=== PATIENT | male | born 1935 | race African-American/Black ===

== ENCOUNTER 2018-12-29 13:01 | Inpatient (IN) | payer OTHER ==
[2018-12-29 13:32] LABS: #Basophils 0.1 thou/uL (0.0-0.2); #Eosinphils 0.1 thou/uL (0.0-0.7); #Lymphocytes 1.2 thou/uL (1.20-3.40); #Monocytes 0.9 thou/uL (0.11-0.59); #Neutrophils 4.5 thou/uL (1.40-6.50); %Basophils 1.1 % (0.0-1.0); %Eosinophils 0.8 % (0.0-10.0); %Lymphocytes 17.6 % (21.0-51.0); %Monocytes 13.8 % (0.0-10.0); %Neutrophils 66.7 % (42.0-75.0); Hemoglobin 11.6 g/dL (14.0-18.0); Mean Corpuscular Hemoglobin 29.3 pg (27.0-31.0); Mean Corpuscular Volume 88.7 fL (78.0-98.0); Mean Platelet Volume 9.6 fL (7.4-10.4); Platelet Count 207 thou/uL (130-400); RBC Distribution Width 14.1 % (11.5-14.5); Red Blood Cell (RBC) Count 3.95 mill/uL (4.70-6.10); White Blood Cell (WBC) Count 6.8 thou/uL (4.8-10.8)
--- NOTE | 2018-12-29 13:38 | RAD ---
PORTABLE CHEST 1 VIEW: Date: 12/29/18 Time: 1309 hours HISTORY: Altered mental status. FINDINGS: Comparison made with exam of 06/26/13. There are changes of median sternotomy. The heart size is normal. The aorta is tortuous. The lungs ar e expanded without lobar consolidation, pneumothoraces, or pleural effusions. There is evidence of ol d granulomatous disease. IMPRESSION: No acute process. POS: [facility]
[2018-12-29 14:05] LABS: ALT (SGPT) Less than 7 U/L (8-55); AST (SGOT) 12 U/L (5-34); Albumin 3.9 g/dL (3.4-4.8); Alkaline Phosphatase 93 U/L (40-110); Anion Gap 10 mmol/L (10-20); BUN (Urea Nitrogen) 13 mg/dL (8.4-25.7); Bilirubin, Total 0.7 mg/dL (0.2-1.2); CK (CPK) 123 U/L (30-200); Calc. Creatinine Clearance 0 mL/min (70-130); Calcium 9.4 mg/dL (7.8-10.44); Carbon Dioxide 27 mmol/L (23-31); Chloride 107 mmol/L (98-107); Estimated GFR-MDRD 58; Globulin 2.5 g/dL (2.4-3.5); Glucose 107 mg/dL (83-110); Potassium 3.6 mmol/L (3.5-5.1); Protein, Total 6.4 g/dL (5.8-8.1); Sodium 140 mmol/L (136-145)
--- NOTE | 2018-12-29 14:22 | CT ---
CT BRAIN WITHOUT CONTRAST: Date: 12/29/18 HISTORY: Altered mental status. FINDINGS: There are changes of cortical atrophy and chronic small vessel ischemic disease. The ventricular size is slightly more prominent compared to the degree of atrophy. The basilar cisterns are patent. The b any calvarium is intact. The visualized paranasal sinuses and mastoid air cells are well aerated. IMPRESSION: 1. No CT evidence of acute intracranial process. 2. Clinical correlation for normal pressure hydrocephalus is recommended. POS: [facility]
[2018-12-29 14:30] LABS: Bacteria/HPF None Seen HPF (None Seen); Bilirubin Negative (Negative); Blood, Urine Negative (Negative); Clarity Clear (Clear); Glucose, Urine (Dipstick) Normal (Negative); Leukocyte Negative Leu/uL (Negative); Nitrite Negative (Negative); Protein, Urine (Dipstick) 30 mg/dL (Neg-Trace); RBC/HPF 0-3 HPF (0-3); Squamous Epithelial 0-3 HPF (0-3); Urobilinogen 3 mg/dL (Less than 2)
[2018-12-29] MEDS ORDERED: Ondansetron ODT 4 MG TAB SL PRN (18:03)
[2018-12-29] MEDS ORDERED: Ondansetron PF 4 MG/2 ML Vial IVP PRN ×2 (18:03→20:39)
[2018-12-29] MEDS ORDERED: Acetaminophen 325 MG TAB PO PRN (18:03)
[2018-12-29] MEDS ORDERED: Sodium Chloride 0.9% 1,000 ML IV SCH ×2 (18:03→21:30)
[2018-12-29] MEDS ORDERED: HYDROcodone/Acetaminophen 5/325 mg Tablet PO PRN ×2 (18:03)
[2018-12-29 18:41] VITALS: BMI 20.9
[2018-12-29] MEDS ORDERED: Ondansetron ODT 4 MG TAB PO PRN (20:39)
[2018-12-29] MEDS ORDERED: Famotidine/PF 20 mg/2ml Vial SLOW IVP SCH (21:00)
--- NOTE | 2018-12-29 22:01 | HP ---
TIME OF ADMISSION: 1900 hours. REASON FOR ADMISSION: Confusion. HISTORY OF PRESENT ILLNESS: Mr. Reynolds is a pleasant 83-year-old gentleman with a known history of hypertension who presented to the emergency department with confusion, witnessed by the staff at [facility]. The patient states he was told he appeared to be confused and states he was being asked multiple questions including the date, day, year, etc. The patient is unsure what exactly alarmed the staff , but states he has felt very well in himself in recent days and feels like he is in his usual state of mind and health at this present time. The floor nurse reported that he appeared to be confused on arrival to the emergency department. His symptoms have fully resolved. Very limited information obtained through the ED note. In the emergency department, he underwent laboratory studies which showed white count of 6.8, hemoglobin 11.6, hematocrit 35.1. Sodium 140, potassium 3.6, anion gap 10, BUN 13, creatinine elevated at 1.42. No previous to compare to. GFR is 58, glucose 107, calcium 9.4, total bilirubin 0.7, AST 12, ALT less than 7, alkaline phosphatase 73. CK 123, troponin negative. Albumin 3.9. Urinalysis notable for 30 of protein, 3 urobilinogen, 4-6 white blood cells, 21- 50 hyaline casts. Otherwise unremarkable. A chest x-ray was done, which showed no acute process. He also underwent CT imaging of the brain, which demonstrated no CT evidence of acute intracranial process. There was mention of slightly more prominent ventricular size compared to the degree of atrophy. PAST MEDICAL HISTORY: 1. Hypertension. 2. BPH. 3. Coronary artery disease. PAST SURGICAL HISTORY: 1. Right leg surgery. 2. CABG. SOCIAL HISTORY: The patient lives in what sounds like assisted living at [facility]. He states he mobilizes with a walker and is fully independent with self-care. Reports being a former smoker. No alcohol consumption or drug use. ALLERGIES: SULFA. CURRENT MEDICATIONS: 1. Amlodipine. 2. Metoprolol succinate. PHYSICAL EXAMINATION: GENERAL: The patient appears well developed, well nourished, he is in no acute distress. He is resting comfortably in bed, eating his dinner. VITAL SIGNS: Temperature 98.3, pulse 71, respirations 16, O2 saturation 98% on room air, blood pressure 148/60. HEENT: Normocephalic and atraumatic. Pupils are equal, round, and reactive to light. Sclerae without icterus. Oropharynx is clear. NECK: Supple without lymphadenopathy. LUNGS: Clear to auscultation bilaterally without any wheezes, rales, or rhonchi. CARDIAC: Regular rate and rhythm without audible murmurs, rubs, or gallops. ABDOMEN: Soft, nontender, nondistended. Normoactive bowel sounds present. EXTREMITIES: No lower leg swelling or edema. NEUROLOGIC: Alert and oriented x3. SKIN: Without rash or jaundice. INVESTIGATIONS: As mentioned above in HPI. IMPRESSION AND PLAN: Mr. Reynolds is a pleasant 83-year-old gentleman who had an episode of transient confusion, who has been referred for management of the following. 1. Transient ischemic attack, rule out. The patient apparently witnessed to be confused by [facility] staff, but on arrival to the emergency department he was back to baseline. We will need to obtain further information from family who apparently may have been there or from [facility] staff. Nobody at bedside at this present time and the patient is stating he feels he is back to baseline and though he recalls being asked multiple questions to assess his mental status is unsure what the concern was, stating that he felt well in himself and has not had any issues today or as of recently. CT brain negative. We will proceed with transient ischemic attack workup. 2. Acute kidney injury. The patient with a creatinine of 1.42, GFR 58. He is eating and drinking at the moment. He has received some IV fluids in the emergency department. We will continue with gentle hydration. 3. Coronary artery disease. Resume home medications once verified. 4. Hypertension. Monitor blood pressure. Resume home medications once verified. 5. Gastrointestinal prophylaxis. Famotidine 10 mg IV b.i.d. 6. Deep venous thrombosis prophylaxis. Mechanical SCDs. 7. Code status is full. His surrogate decision maker is his , Kalie Reynolds. The patient's case was discussed with Dr. Zendejas who agrees with plan of care as described above. Job ID: [id number] MTDD
[2018-12-30 05:26] LABS: Anion Gap 12 mmol/L (10-20); BUN (Urea Nitrogen) 14 mg/dL (8.4-25.7); Calc. Creatinine Clearance 38 mL/min (70-130); Carbon Dioxide 22 mmol/L (23-31); Cardiac Risk 4.8 (Less than 4.5); Chloride 106 mmol/L (98-107); Cholesterol 202 mg/dl (< 200 Desired); Estimated GFR-MDRD 67; Glucose 94 mg/dL (83-110); HDL Cholesterol 42 mg/dL (>60 Neg Risk); LDL Cholesterol, Calculated 131 mg/dL; Potassium 3.4 mmol/L (3.5-5.1); Sodium 137 mmol/L (136-145); Triglycerides 144 mg/dL (Less than 150)
[2018-12-30 05:39] LABS: Eosinophils 3 % (0-10); Lymphocytes 40 % (21-51); MDiff Complete? YES; Mean Corpuscular HGB CONC 32.9 g/dL (32.0-36.0); Mean Corpuscular Hemoglobin 29.2 pg (27.0-31.0); Mean Corpuscular Volume 88.8 fL (78.0-98.0); Mean Platelet Volume 9.7 fL (7.4-10.4); Monocytes 20 % (0-10); Neutrophil 37 % (42-75); Platelet Count 200 thou/uL (130-400); Platelet Morphology Comment Appears Adequate; RBC Distribution Width 14.2 % (11.5-14.5); Red Blood Cell (RBC) Count 3.75 mill/uL (4.70-6.10); White Blood Cell (WBC) Count 6.1 thou/uL (4.8-10.8)
--- NOTE | 2018-12-30 08:01 | ULT ---
BILATERAL CAROTID DUPLEX ULTRASOUND: DATE: 12/30/18 HISTORY: TIA. TECHNIQUE: Akers scale ultrasound with color flow and spectral Doppler imaging of the extracranial carotid artery systems performed bilaterally. FINDINGS: No significant plaque formation or intimal wall thickening is seen. The peak systolic velocity in the right ICA measures 50 cm/second with an end-diastolic velocity of 6 cm/second and a systolic ratio of 0.41. The peak systolic velocity in the left ICA measures 46 cm/second with an end-diastolic velocity of 11 cm/second and a systolic ratio of 0.61. Flow in both vertebral arteries remains antegrade. IMPRESSION: No evidence of hemodynamically significant stenosis. POS: [facility]
[2018-12-30 12:12] VITALS: BP 139/79; TEMP 98.5
--- NOTE | 2018-12-30 14:39 | DIS ---
DATE OF ADMISSION: 12/29/2018 DATE OF DISCHARGE: 12/30/2018 FINAL DIAGNOSES: Hypertension, coronary artery disease, and benign prostatic hypertrophy. DISCHARGE MEDICATIONS: Doxazosin 4 mg at bedtime and Ambien 10 mg at bedtime. ALLERGIES: SULFA. PENDING AT TIME OF DISCHARGE: Nothing. CODE STATUS: Full. DIET: Heart healthy. DISPOSITION: Discharged back to [facility]. CONSULTATIONS: None. PROCEDURES: None. HOSPITAL COURSE: The patient referred to the [facility] by [facility] after transfer with a diagnosis of disorientation. He has been oriented since admission and continues to be oriented. Neurologic exam is non focal His workup included a brain CT, which showed no abnormality of note. Chest x- ray, no CHF, etc. Carotid Doppler, no hemodynamic stenosis. Laboratory; white count 6.8, hemoglobin 11.6, and platelet count 206,000. Comprehensive metabolic profile initially creatinine 1.42, followup 1.25. Cardiac enzyme was normal. EKG was unremarkable. The patient is alert and oriented. Vital signs stable. Cardiorespiratory exam normal. He is being returned to Home for continuing care. He needs to be followed up by his PCP within 1 week. I would comment that he is on a fairly high dose of Ambien and would consider reducing his Ambien to 5 mg at bedtime p.r.n. Job ID: [id number] [facility]
[2018-12-30] MEDS ORDERED: Doxazosin Mesylate 4 MG TAB PO SCH (21:00)
--- NOTE | 2018-12-31 23:07 | PQF ---
OSWALDO MUÑOZ COUNCIL C MD [id number] [facility] [place]-208 [id number] CLINICAL DOCUMENTATION CLARIFICATION FORM: POST DISCHARGE Addendum to original discharge summary date: ____ Late entry note date: __ DATE: 12/31/18 ATTN: Dr Flower, [place] Please exercise your independent, professional judgment in responding to the clarification form. Clinical indicators are provided on the bottom of this form for your review Please check appropriate box(s): [ ] Acute Metabolic Encephalopathy [ ] Acute Toxic Encephalopathy [ ] Transient Alteration of Awareness [ x ] Other diagnosis _no evidense for any altered mental status [ ] Unable to determine In addition, please specify: Present on Admission (POA): [ ] Yes [x ] No [ ] Unable to determine For continuity of documentation, please document condition throughout progress notes and discharge summary. Thank You. CLINICAL INDICATORS - SIGNS / SYMPTOMS / LABS H&P p1 12/29 presented to the ED with confusion, witnessed by the staff at [place] Discharge summary p1 12/30 Dr Flower He has been oriented since admission and continues to be oriented Discharge summary p1 12/30 Dr Flower Neurologic exam is non-focal, his workup including brain CT, which showed no abnormality of note Discharge summary p1 12/30 Dr Flower Comprehensive metabolic profile initially creatinine 1.42 follow up 1.25 RISK FACTORS H&P p1 12/29 83-year-old Gentlemen H&P p2 12/29 Acute kidney Injury H&P p2 12/29 Transient ischemic attack, rule out TREATMENTS: H&P p2 12/29 TIA workup H&P p2 12/29 CT brain ordered H&P p2 12/29 Gentle hydration Discharge summary p1 12/30 Medications: Doxazosin 4mg at bedtime and Ambien 10mg at bedtime (This form is maintained as a part of the permanent medical record) 2014 [employer]. All Rights Reserved [email or web address] [not provided] MTDD
--- NOTE | 2018-12-31 23:08 | PQF ---
OSWALDO MUÑOZ COUNCIL C MD [id number] [facility] [place] [id number] CLINICAL DOCUMENTATION CLARIFICATION FORM: POST DISCHARGE Addendum to original discharge summary date: ____ Late entry note date: __ DATE: 12/31/18 ATTN: Loretta Whitaker Please exercise your independent, professional judgment in responding to the clarification form. Clinical indicators are provided on the bottom of this form for your review In your clinical opinion based on clinical findings below, can you please identify the etiology of Confusion if due to: Please check appropriate box(s): [ ] TIA [ ] NANCY [x ] Other diagnosis ____there was no confusion documented [ ] Unable to determine In addition, please specify: Present on Admission (POA): [ ] Yes [ ] No [ ] Unable to determine For continuity of documentation, please document condition throughout progress notes and discharge summary. Thank You. CLINICAL INDICATORS - SIGNS / SYMPTOMS / LABS H&P p1 12/29 presented to the ED with confusion, witnessed by the staff at [place] Discharge summary p1 12/30 Dr Flower He has been oriented since admission and continues to be oriented Discharge summary p1 12/30 Dr Flower Neurologic exam is non-focal, his workup including brain CT, which showed no abnormality of note Discharge summary p1 12/30 Dr Flower Comprehensive metabolic profile initially creatinine 1.42 follow up 1.25 RISK FACTORS H&P p1 12/29 83-year-old Gentlemen H&P p2 12/29 Acute kidney Injury H&P p2 12/29 Transient ischemic attack, rule out TREATMENTS: H&P p2 12/29 TIA workup H&P p2 12/29 CT brain ordered H&P p2 12/29 Gentle hydration Discharge summary p1 12/30 Medications: Doxazosin 4mg at bedtime and Ambien 10mg at bedtime (This form is maintained as a part of the permanent medical record) 2014 [employer]. All Rights Reserved [email or web address] [not provided] MTDD
--- NOTE | 2019-01-01 19:20 | PQF ---
OSWALDO MUÑOZ COUNCIL C MD [id number] [facility] [place]-208 [id number] CLINICAL DOCUMENTATION CLARIFICATION FORM: POST DISCHARGE Addendum to original discharge summary date: ____ Late entry note date: __ DATE:01/01/19 ATTN: Loretta Whitaker Please exercise your independent, professional judgment in responding to the clarification form. Clinical indicators are provided on the bottom of this form for your review Please check appropriate box(s) to clarify if the following diagnosis has been ruled in or ruled out: Transient Ischemic Attack [ ] Ruled in diagnosis [ ] Continue to treat [ ] Resolved [ x] Ruled out diagnosis [ ] Cannot rule out diagnosis [ ] Other diagnosis [ ] Unable to determine In addition, please specify: Present on Admission (POA): [ ] Yes [ ] No [ ] Unable to determine For continuity of documentation, please document condition throughout progress notes and discharge summary. Thank You. CLINICAL INDICATORS - SIGNS / SYMPTOMS / LABS H&P p1 12/29 presented to the ED with confusion, witnessed by the staff at [place] Discharge summary p1 12/30 Dr Flower He has been oriented since admission and continues to be oriented Discharge summary 12/30 Dr Flower Neurologic exam is non-focal his workup including brain CT, which showed no abnormality of note Discharge summary p1 12/30 Dr Flower Comprehensive metabolic profile initially creatinine 1.42 follow up 1.25 RISK FACTORS H&P p1 12/29 83-year-old Gentlemen H&P p2 12/29 Acute kidney Injury H&P p2 12/29 Transient attack, rule out TREATMENTS: H&P p2 12/29 TIA workup H&P p2 12/29 CT brain ordered H&P p2 12/29 Gentle hydration Discharge summary p1 12/30 Medications: Doxazosin 4mg at bedtime and Ambien 10mg at bedtime (This form is maintained as a part of the permanent medical record) 2015 [employer] All Rights Reserved [email or web address] [not provided] MTDD
--- NOTE | 2019-01-07 19:41 | PQF ---
OSWALDO MUÑOZ COUNCIL C MD [id number] [facility]-208 [id number] CLINICAL DOCUMENTATION CLARIFICATION FORM: POST DISCHARGE Addendum to original discharge summary date: ____ Late entry note date: __ DATE: 01/07/19 ATTN: Loretta Whitaker Please exercise your independent, professional judgment in responding to the clarification form. Clinical indicators are provided on the bottom of this form for your review In your clinical opinion based on clinical findings below, can you please identify the condition as the reason for Inpatient admission, if due to: Please check appropriate box(s): [ ] TIA [ x ] NANCY [ ] Other diagnosis [ ] Unable to determine In addition, please specify: Present on Admission (POA): [ ] Yes [ ] No [ ] Unable to determine For continuity of documentation, please document condition throughout progress notes and discharge summary. Thank You. CLINICAL INDICATORS - SIGNS / SYMPTOMS / LABS H&P p1 12/29 presented to the ED with confusion, witnessed by the staff at [place] Discharge summary p1 12/30 Dr Flower He has been oriented since admission and continues to be oriented Discharge summary p1 12/30 Dr Flower Neurologic exam is non-focal, his workup including brain CT, which showed no abnormality of note Discharge summary p1 12/30 Dr Flower Comprehensive metabolic profile initially creatinine 1.42 follow up 1.25 RISK FACTORS H&P p1 12/29 83-year-old Gentlemen H&P p2 12/29 Acute kidney Injury H&P p2 12/29 Transient ischemic attack, rule out TREATMENTS: H&P p2 12/29 TIA workup H&P p2 12/29 CT brain ordered H&P p2 12/29 Gentle hydration Discharge summary p1 12/30 Medications: Doxazosin 4mg at bedtime and Ambien 10mg at bedtime MTDD
--- NOTE | 2019-01-10 20:07 | EKG ---
Test Reason : AMS Blood Pressure : / mmHG Vent. Rate : 071 BPM Atrial Rate : 163 BPM P-R Int : 000 ms QRS Dur : 120 ms QT Int : 388 ms P-R-T Axes : 000 -54 003 degrees QTc Int : 421 ms Undetermined rhythm Left axis deviation Right bundle branch block Abnormal ECG No changes from 19-DEC-2018 Confirmed by MEMO LAMB, BROOK ([id number]), doctor assistant KITTY SAENZ ([id number]) on 01/10/2019 8:06:44 PM Referred By: Confirmed By:BROOK HAMPTON MD
== END 2018-12-30 14:56 | DRG 684 ==
LOC: ERS 13:01 → 2SE 18:05
PROVIDERS: ADMIT Internal Medicine; ATTEND Internal Medicine
DX: N17.9 Acute kidney failure, unspecified (principal); I25.10 Atherosclerotic heart disease of native coronary artery without angina pectoris; I10 Essential (primary) hypertension; N40.0 Benign prostatic hyperplasia without lower urinary tract symptoms; Z79.899 Other long term (current) drug therapy; Z88.2 Allergy status to sulfonamides; Z95.1 Presence of aortocoronary bypass graft
CPT/HCPCS: 36415; 70450; 71045; 80048; 80053; 80061; 81003; 81015; 82550; 83735; 84484; 85025; 93005; 93880; S0028

== ENCOUNTER 2019-04-10 10:19 | Emergency (ER) | payer OTHER ==
[2019-04-10 13:43] LABS: #Basophils 0.1 thou/uL (0.0-0.2); #Lymphocytes 1.7 thou/uL (1.20-3.40); #Monocytes 0.8 thou/uL (0.11-0.59); #Neutrophils 3.6 thou/uL (1.40-6.50); %Eosinophils 0.7 % (0.0-10.0); %Lymphocytes 26.9 % (21.0-51.0); %Monocytes 13.4 % (0.0-10.0); %Neutrophils 58.1 % (42.0-75.0); Hemoglobin 12.4 g/dL (14.0-18.0); Mean Corpuscular HGB CONC 32.9 g/dL (32.0-36.0); Mean Corpuscular Hemoglobin 29.5 pg (27.0-31.0); Mean Corpuscular Volume 89.8 fL (78.0-98.0); Mean Platelet Volume 10.4 fL (7.4-10.4); Platelet Count 218 thou/uL (130-400); RBC Distribution Width 13.4 % (11.5-14.5); Red Blood Cell (RBC) Count 4.22 mill/uL (4.70-6.10); White Blood Cell (WBC) Count 6.2 thou/uL (4.8-10.8)
[2019-04-10 14:08] LABS: ALT (SGPT) Less than 7 U/L (8-55); AST (SGOT) 18 U/L (5-34); Albumin 3.9 g/dL (3.4-4.8); Alkaline Phosphatase 88 U/L (40-110); Anion Gap 16 mmol/L (10-20); BUN (Urea Nitrogen) 15 mg/dL (8.4-25.7); CK (CPK) 369 U/L (30-200); Calc. Creatinine Clearance 0 mL/min (70-130); Carbon Dioxide 25 mmol/L (23-31); Chloride 104 mmol/L (98-107); Estimated GFR-MDRD 60; Globulin 2.9 g/dL (2.4-3.5); Glucose 85 mg/dL (83-110); Lipase 14 U/L (8-78); Potassium 3.4 mmol/L (3.5-5.1); Protein, Total 6.8 g/dL (5.8-8.1); Sodium 142 mmol/L (136-145)
--- NOTE | 2019-04-10 14:45 | RAD ---
CHEST ONE VIEW: 04/10/19 HISTORY: Fall. Weakness. COMPARISON: Radiograph 2019. FINDINGS: The lungs are clear. No pneumothorax. No effusion. Mild tortuosity of the aorta, although somewhat li mited due to rightward patient rotation. No acute osseous abnormality. IMPRESSION: 1. No acute intrathoracic abnormality. 2. Evidence of prior granulomatous disease. POS: [facility]
[2019-04-10 15:33] LABS: Bacteria/HPF None Seen HPF (None Seen); Bilirubin Negative (Negative); Blood, Urine Negative (Negative); Clarity Clear (Clear); Glucose, Urine (Dipstick) 30 mg/dL (Negative); Leukocyte Negative Leu/uL (Negative); Nitrite Negative (Negative); Protein, Urine (Dipstick) 30 mg/dL (Neg-Trace); RBC/HPF None Seen HPF (0-3); Squamous Epithelial 0-3 HPF (0-3); Urobilinogen 3 mg/dL (Less than 2); WBC/HPF 0-3 HPF (0-3)
== END 2019-04-10 17:16 | disposition home or self-care (01) ==
LOC: ERS 10:19
DX: R53.1 Weakness (principal); I10 Essential (primary) hypertension; Z87.891 Personal history of nicotine dependence; Z79.899 Other long term (current) drug therapy; W06.XXXA Fall from bed, initial encounter
CPT/HCPCS: 36415; 71045; 80053; 81003; 81015; 82550; 83690; 84484; 85025; 93005; 96360; 96361

== ENCOUNTER 2019-04-21 09:26 | Emergency (ER) | payer OTHER ==
[2019-04-21 09:56] LABS: Bilirubin Negative (Negative); Blood, Urine Negative (Negative); Clarity Clear (Clear); Glucose, Urine (Dipstick) Normal (Negative); Leukocyte 250 Leu/uL (Negative); Nitrite Negative (Negative); Protein, Urine (Dipstick) 50 mg/dL (Neg-Trace); RBC/HPF 0-3 HPF (0-3); Urobilinogen 3 mg/dL (Less than 2); WBC/HPF 21-50 HPF (0-3)
[2019-04-21 10:04] LABS: Bacteria/HPF 2+ HPF (None Seen); Squamous Epithelial 0-3 HPF (0-3)
[2019-04-21 10:06] LABS: #Basophils 0.1 thou/uL (0.0-0.2); #Lymphocytes 1.4 thou/uL (1.20-3.40); #Monocytes 0.7 thou/uL (0.11-0.59); #Neutrophils 4.5 thou/uL (1.40-6.50); %Basophils 1.2 % (0.0-1.0); %Eosinophils 0.6 % (0.0-10.0); %Lymphocytes 21.3 % (21.0-51.0); %Monocytes 9.8 % (0.0-10.0); %Neutrophils 67.2 % (42.0-75.0); Hemoglobin 11.5 g/dL (14.0-18.0); Mean Corpuscular HGB CONC 32.3 g/dL (32.0-36.0); Mean Corpuscular Hemoglobin 29.5 pg (27.0-31.0); Mean Corpuscular Volume 91.3 fL (78.0-98.0); Mean Platelet Volume 10.5 fL (7.4-10.4); Platelet Count 229 thou/uL (130-400); RBC Distribution Width 13.8 % (11.5-14.5); Red Blood Cell (RBC) Count 3.89 mill/uL (4.70-6.10); White Blood Cell (WBC) Count 6.7 thou/uL (4.8-10.8)
--- NOTE | 2019-04-21 10:16 | RAD ---
Portable frontal chest radiograph: 04/21/2019 COMPARISON: 04/10/2019 HISTORY: Recent falls, weakness FINDINGS: There are multiple calcified granulomata within both lungs. Midline sternotomy wires are pr esent. No pneumothorax or pleural fluid. No focal consolidation or alveolar edema. IMPRESSION: No acute findings.
[2019-04-21] MEDS ORDERED: cefTRIAXone\\ROCEPHIN 1 GM VIAL ONE (10:17)
[2019-04-21 10:24] LABS: ALT (SGPT) Less than 7 U/L (8-55); AST (SGOT) 11 U/L (5-34); Albumin 3.8 g/dL (3.4-4.8); Alkaline Phosphatase 92 U/L (40-110); Anion Gap 15 mmol/L (10-20); BUN (Urea Nitrogen) 14 mg/dL (8.4-25.7); Bilirubin, Total 0.9 mg/dL (0.2-1.2); Calc. Creatinine Clearance 0 mL/min (70-130); Calcium 9.4 mg/dL (7.8-10.44); Carbon Dioxide 23 mmol/L (23-31); Chloride 105 mmol/L (98-107); Estimated GFR-MDRD 47; Globulin 2.7 g/dL (2.4-3.5); Glucose 140 mg/dL (83-110); Potassium 3.1 mmol/L (3.5-5.1); Protein, Total 6.5 g/dL (5.8-8.1); Sodium 140 mmol/L (136-145)
--- NOTE | 2019-04-21 10:39 | CT ---
BRAIN CT WITHOUT IV CONTRAST: HISTORY: Altered mental status, level II stroke alert. COMPARISON: 12/29/2018. FINDINGS: Atrophy and chronic white matter ischemic changes are noted. 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 No mass or bleed. Findings were discussed with Dr. Saldivar in the emergency room at 10:04 a.m. [facility]
[2019-04-21 12:59] LABS: Lactic Acid 1.6 mmol/L (0.5-2.2)
[2019-04-21] MEDS ORDERED: Potassium Chloride 20 MEQ in Premix Bag 1 BAG IVPB SCH (14:45)
[2019-04-21] MEDS ORDERED: Metoprolol Tartrate 25 MG TAB ONE (16:29)
== END 2019-04-21 22:13 ==
LOC: ERS 09:26
DX: G93.40 Encephalopathy, unspecified (principal); N39.0 Urinary tract infection, site not specified; R41.82 Altered mental status, unspecified; I10 Essential (primary) hypertension; Z87.891 Personal history of nicotine dependence
CPT/HCPCS: 36415; 36416; 51701; 70450; 71045; 80053; 81003; 81015; 83605; 83880; 84484; 85025; 87040; 87086; 87804; 93005; 96365; 96366; 96367; J0696; J3370; J3480